=== PATIENT | male | born 1955 | race Caucasian/White ===

== ENCOUNTER 2022-09-18 11:18 | Outpatient (CLI) | payer MEDICARE, BC ==
[~2022-09-18 11:18] MED LIST: Iopamidol 300 61% 100 ML VIAL FS ONE
== END 2022-09-18 11:19 | disposition home or self-care (01) ==
LOC: CSHCT 11:18
PROVIDERS: ATTEND Family Medicine
DX: R10.9 Unspecified abdominal pain (principal)
CPT/HCPCS: 74178

== ENCOUNTER 2024-10-22 10:28 | Outpatient (CLI) | payer MEDICARE, BC | END 2024-10-22 10:29 | disposition home or self-care (01) | LOC: CSHLAB 10:28 | PROVIDERS: ATTEND Specialist | DX: Z01.818 Encounter for other preprocedural examination (principal); K40.90 Unilateral inguinal hernia, without obstruction or gangrene, not specified as recurrent | CPT/HCPCS: 71046; 93005; 93010 ==